=== PATIENT | female | born 1955 | race Two or more races ===

== ENCOUNTER 2023-03-16 11:36 | Emergency (ER) | payer OTHER ==
[~2023-03-16] VITALS: Ht 162.6 cm; Wt 59.9 kg
[2023-03-16] MEDS ORDERED: NORVASC5 MG (12:23)
[2023-03-16] MEDS ORDERED: ZESTRIL10 M1 (12:23)
[2023-03-16 16:14] LABS: HEMATOCRIT 34.9 % (36.0-45.00); HEMOGLOBIN 11.7 g/dL (12.0-15.00); MEAN CELL VOLUME 96.5 fL (80.00-100.00); MEAN CORPUSCULAR HEMOGLOBIN 32.4 pg (27.00-32.0); MEAN CORPUSCULAR HGB CONC 33.5 g/dl (32.0-36.0); PLATELET COUNT 261 K/uL (150-450); RED BLOOD COUNT 3.61 M/uL (4.00-6.00); RED CELL DISTRIBUTION WIDTH 13.4 % (11.5-14.5)
[2023-03-16 16:28] LABS: PH,URINE 5.5 (5.0-8.0); URINE APPEARANCE Cloudy; URINE BILIRRUBIN Negative (NEGATIVE); URINE BLOOD Moderate; URINE COLOR Yellow; URINE EPITHELIAL CELLS 77.1 uL (0.0-38.8); URINE GLUCOSE Negative (NEGATIVE); URINE LEUKOCYTE Small; URINE NITRATE Positive; URINE WBC 145.6 uL (0.0-23.2)
[2023-03-16 16:30] LABS: CALCIUM 9.3 mg/dL (8.5-10.1); CREATININE SERUM 0.84 mg/dL (0.55-1.02); GFR 67.22; POTASSIUM 4.02 mEq/L (3.5-5.1)
[2023-03-16 16:43] LABS: URINE BACTERIA > 9821.5 uL (0.0-1933); URINE PROTEIN 100 (NEGATIVE)
[2023-03-16 16:44] LABS: URINE CRYSTALS FEW /HPF; URINE MUCUS SCANT
== END 2023-03-16 19:49 | disposition home or self-care (01) ==
LOC: ER 11:37
PROVIDERS: General Practice
DX: J06.9 Acute upper respiratory infection, unspecified (principal); R50.9 Fever, unspecified; J45.909 Unspecified asthma, uncomplicated; Z91.041 Radiographic dye allergy status; I10 Essential (primary) hypertension
CPT/HCPCS: 36415; 71046; 96372; 99284; J0696